=== PATIENT | male | born 1990 | race Caucasian/White ===

== ENCOUNTER → 2016-11-17 | Outpatient (CLI) | payer OTHER ==
[~2016-11-17] MED LIST: ZYPR10TA PO
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
== END ==
LOC: HRAD 09:24
DX: M25.561 Pain in right knee (principal)
CPT/HCPCS: 73564